=== PATIENT | female | born 1960 | race Caucasian/White ===

== ENCOUNTER 2017-02-14 12:55 | Inpatient (IN) | payer OTHER ==
[~2017-02-14] VITALS: Ht 170.2 cm; Wt 111.6 kg
[2017-02-14] MEDS ORDERED: LIPITOR TAB 2020 MG PO (16:47)
[2017-02-14] MEDS ORDERED: CELEXA40 MG PO (16:49)
[2017-02-14] MEDS ORDERED: VITAMIN B-121000 MC3 PO (16:52)
[2017-02-14] MEDS ORDERED: KLONOPIN TAB 00.5 MG PO (16:52)
[2017-02-14] MEDS ORDERED: NEURONTIN 400400 MG PO (16:53)
[2017-02-14] MEDS ORDERED: HYDRALAZINE HCL25 MG PO (16:53)
[2017-02-14] MEDS ORDERED: LASIX40 MG PO (16:53)
[2017-02-14] MEDS ORDERED: ELIQUIS5 MG PO (16:53)
[2017-02-14] MEDS ORDERED: IMDUR ER TAB 3030 MG PO (16:54)
[2017-02-14] MEDS ORDERED: KEPPRA1000 MG PO (16:55)
[2017-02-14] MEDS ORDERED: SYNTHROID300 MCG PO (16:58)
[2017-02-14] MEDS ORDERED: GLUCOPHAGE1000 MG PO (17:00)
[2017-02-14] MEDS ORDERED: ZESTRIL 40 MG T40 MG PO (17:00)
[2017-02-14] MEDS ORDERED: PROCARDIA XL 3030 MG PO (17:01)
[2017-02-14] MEDS ORDERED: LOPRESSOR100 MG PO (17:01)
[2017-02-14] MEDS ORDERED: DITROPAN 5 MG TA5 MG PO (17:02)
[2017-02-14] MEDS ORDERED: PROTONIX40 MG PO (17:02)
[2017-02-14] MEDS ORDERED: AMBIEN5 MG PO (17:03)
[2017-02-14] MEDS ORDERED: DIABETA 5 MG TAB5 MG PO (17:41)
[2017-02-14] MEDS ORDERED: JANUVIA 100 MG100 MG PO (17:41)
[2017-02-14 17:48] LABS: HEMOGLOBIN 7.7 gm/dl (12.3-15.3); RED BLOOD COUNT 3.37 M/UL (4.00-5.10); WHITE BLOOD COUNT 9.2 K/UL (4.5-11.0)
[2017-02-15 05:56] LABS: HEMOGLOBIN 7.4 gm/dl (12.3-15.3); RED BLOOD COUNT 3.28 M/UL (4.00-5.10); WHITE BLOOD COUNT 8.9 K/UL (4.5-11.0)
[2017-02-15 06:17] LABS: BUN/CREATININE RATIO 23 (0-10)
[2017-02-15 16:44] LABS: HEMOGLOBIN 7.3 gm/dl (12.3-15.3); RED BLOOD COUNT 3.23 M/UL (4.00-5.10)
[2017-02-15 16:47] LABS: WHITE BLOOD COUNT 12.2 K/UL (4.5-11.0)
[2017-02-16 05:52] LABS: HEMOGLOBIN 7.4 gm/dl (12.3-15.3); RED BLOOD COUNT 3.05 M/UL (4.00-5.10)
[2017-02-16 05:57] LABS: WHITE BLOOD COUNT 8.1 K/UL (4.5-11.0)
[2017-02-16 06:06] LABS: BUN/CREATININE RATIO 17 (0-10)
[2017-02-17 06:01] LABS: WHITE BLOOD COUNT 9.2 K/UL (4.5-11.0)
[2017-02-17 06:02] LABS: RED BLOOD COUNT 3.44 M/UL (4.00-5.10)
[2017-02-17 06:25] LABS: BUN/CREATININE RATIO 15 (0-10)
[2017-02-19 05:10] LABS: RED BLOOD COUNT 3.41 M/UL (4.00-5.10); WHITE BLOOD COUNT 8.3 K/UL (4.5-11.0)
[2017-02-19 05:44] LABS: BUN/CREATININE RATIO 20 (0-10)
[2017-02-19] MEDS ORDERED: LANTUS INS100 UTS/M1 SQ ×2 (16:40→16:41)
[2017-02-19] MEDS ORDERED: QUESTRAN LIGHT 44 GM PO (16:40)
[2017-02-19] MEDS ORDERED: TRADJENTA5 MG PO (16:41)
[2017-02-19] MEDS ORDERED: PLAVIX 75 MG TA75 MG PO (16:41)
[2017-02-19] MEDS ORDERED: ZOLOFT50 MG PO (16:41)
[2017-02-19] MEDS ORDERED: LEVOTHYROXINE125 MCG PO (16:48)
[2017-02-19] MEDS ORDERED: CELEXA20 MG PO (16:57)
[2017-02-19] MEDS ORDERED: FERROUS SULFAT325 MG PO (17:00)
[2017-02-19] MEDS ORDERED: LISINOPRIL10 MG PO (17:06)
[2017-02-19] MEDS ORDERED: JANUVIA 50 MG T50 MG PO (17:11)
[2017-02-19] MEDS ORDERED: TYLENOL 325MG325 MG PO (17:23)
== END 2017-02-19 18:00 | disposition home health service (06) | DRG 637 ==
LOC: MED SURG 4 15:19 → ZEROF 02-18 09:19 → MED SURG 4 02-18 09:19
PROVIDERS: Internal Medicine; Physician Assistant; ADMIT Legal Medicine
DX: E11.649 Type 2 diabetes mellitus with hypoglycemia without coma (principal); G93.41 Metabolic encephalopathy; E87.5 Hyperkalemia; I95.9 Hypotension, unspecified; I10 Essential (primary) hypertension; E86.0 Dehydration; R06.02 Shortness of breath; R53.83 Other fatigue; I69.320 Aphasia following cerebral infarction; I27.2 Other secondary pulmonary hypertension; D50.9 Iron deficiency anemia, unspecified; I07.1 Rheumatic tricuspid insufficiency; G40.909 Epilepsy, unspecified, not intractable, without status epilepticus; E66.9 Obesity, unspecified; E03.9 Hypothyroidism, unspecified; D32.0 Benign neoplasm of cerebral meninges; H54.8 Legal blindness, as defined in USA; E53.8 Deficiency of other specified B group vitamins; I25.2 Old myocardial infarction; Z88.0 Allergy status to penicillin; Z79.01 Long term (current) use of anticoagulants; Z79.899 Other long term (current) drug therapy
CPT/HCPCS: ECHO; 36415; 36430; 36600; 70551; 80048; 80053; 80307; 81001; 82140; 82272; 82550; 82553; 82607; 82728; 82746; 82803; 82962; 83036; 83540; 83550; 84439; 84443; 84484; 85025; 85027; 85610; 86850; 86900; 86901; 86920; 87040; 87086; 92526; 92610; 93306; 97110; 97530; J1756; J7030; J7050; P9016